=== PATIENT | male | born 1980 | race Caucasian/White ===

== ENCOUNTER 2017-04-27 17:52 | Emergency (ER) | payer SELFPAY ==
[~2017-04-27] VITALS: Ht 188 cm; Wt 91.0 kg
[~2017-04-27 17:52] MED LIST: CIPR500T87 PO; OXYC-302 PO; TAMS-11 PO
[2017-04-27] MEDS ORDERED: MORPHINE SULFATE 4 MG/ML, 1ML IVPush PRN (18:30)
[2017-04-27] MEDS ORDERED: SODIUM CHLORIDE FLUSH 10ML SYR IVF ONE (18:30)
[2017-04-27] MEDS ORDERED: ONDANSETRON ODT 4 MG PO ONE (18:30)
[2017-04-27] MEDS ORDERED: SODIUM CHLORIDE 0.9% 1,000ML IV ONE (18:30)
[2017-04-27] MEDS ORDERED: OXYcodone/APAP 10/325MG TABLET PO ONE (19:00)
[2017-04-27] MEDS ORDERED: OXYcodone/APAP 10/325MG TABLET ONE (19:04)
[2017-04-27] MEDS ORDERED: ONDANSETRON ODT 4 MG ONE (19:04)
[2017-04-27 19:23] LABS: BLOOD UREA NITROGEN 12 mg/dL (7-18)
[2017-04-27 19:40] LABS: HEMATOCRIT 40.2 % (39.2-51.8); HEMOGLOBIN 13.5 g/dL (13.7-18.0); WHITE BLOOD COUNT 7.8 x10^3/uL (3.4-10)
[2017-04-27 21:04] VITALS: BP 129/79
== END 2017-04-27 21:07 | disposition home or self-care (01) ==
LOC: ED 21:01
DX: R31.9 Hematuria, unspecified (principal); Z87.442 Personal history of urinary calculi
CPT/HCPCS: 36415; 76770; 80048; 81001; 82040; 85025; 87086; 99285; Q0162

== ENCOUNTER 2017-04-30 09:07 | Emergency (ER) | payer SELFPAY ==
[~2017-04-30] VITALS: Ht 188 cm; Wt 88.3 kg
[2017-04-30 11:26] LABS: PATH.CAST-FLAG NOT PRESENT; SPERM-FLAG NOT PRESENT; SRC-FLAG NOT PRESENT; XTAL-FLAG NOT PRESENT; YLC-FLAG NOT PRESENT
[2017-04-30] MEDS ORDERED: KETOROLAC 30 MG/1 ML ONE (11:48)
[2017-04-30] MEDS ORDERED: ONDANSETRON 2MG/ML, 2ML ONE (11:48)
[2017-04-30] MEDS ORDERED: SODIUM CHLORIDE FLUSH 10ML SYR IVF ONE (12:00)
[2017-04-30] MEDS ORDERED: KETOROLAC 30 MG/1 ML IVPush ONE (12:00)
[2017-04-30] MEDS ORDERED: SODIUM CHLORIDE 0.9% 1,000ML IVBOLUS ONE (12:00)
[2017-04-30] MEDS ORDERED: ONDANSETRON 2MG/ML, 2ML IVPush ONE (12:00)
[2017-04-30 12:02] LABS: HEMATOCRIT 40.1 % (39.2-51.8); HEMOGLOBIN 13.4 g/dL (13.7-18.0); WHITE BLOOD COUNT 9.6 x10^3/uL (3.4-10)
[2017-04-30 12:12] LABS: ASPARTATE AMINO TRANSFERASE 14 U/L (15-37); BLOOD UREA NITROGEN 15 mg/dL (7-18)
[2017-04-30] MEDS ORDERED: LIDOCAINE 1%, 20ML ONE (14:35)
[2017-04-30 15:28] VITALS: BP 118/78
== END 2017-04-30 15:31 | disposition home or self-care (01) ==
LOC: ED 12:30
DX: N13.2 Hydronephrosis with renal and ureteral calculous obstruction (principal); F17.200 Nicotine dependence, unspecified, uncomplicated
CPT/HCPCS: 36415; 74000; 74176; 80053; 81001; 83690; 85025; 96361; 96374; 96375; 99285; J1885; J2405; J7030; J3490

== ENCOUNTER 2019-03-07 14:55 | Emergency (ER) | payer OTHER ==
[~2019-03-07] VITALS: Ht 188 cm; Wt 98.4 kg
[2019-03-07] MEDS ORDERED: NEOSPORIN OINT. PKT 1 PACKET ONE ×2 (15:25→15:30)
[2019-03-07 15:43] VITALS: BP 137/90
[2019-03-07] MEDS ORDERED: IBUPROFEN 800 MG TABLET PO ONE (16:30)
[2019-03-07] MEDS ORDERED: IBUPROFEN 200 MG TABLET ONE (16:40)
== END 2019-03-07 17:39 | disposition home or self-care (01) ==
LOC: ED 17:07
DX: S50.02XA Contusion of left elbow, initial encounter (principal); S20.222A Contusion of left back wall of thorax, initial encounter; G89.11 Acute pain due to trauma; F17.200 Nicotine dependence, unspecified, uncomplicated; W01.0XXA Fall on same level from slipping, tripping and stumbling without subsequent striking against object, initial encounter; Y93.89 Activity, other specified; Y92.009 Unspecified place in unspecified non-institutional (private) residence as the place of occurrence of the external cause; Y99.8 Other external cause status
CPT/HCPCS: 99283